=== PATIENT | female | born 1975 | race Caucasian/White ===

== ENCOUNTER 2017-04-21 15:45 | Emergency (ER) | payer OTHER ==
[~2017-04-21] VITALS: Ht 160 cm; Wt 90.7 kg
--- NOTE | ~2017-04-21 | EKG ---
[address] [address] ELECTROCARDIOGRAM REPORT Name: SIMBA DONOHUE Room #: [facility] Amrita#: [id number] Admission: 04/21/17 Attend Phys: Discharge: 04/21/17 Date of : 77 Report #: [id number] THIS REPORT FOR: //name// [facility] ED Test Date: 2017-04-21 Test Time: 16:41:23 Pat Name: SIMBA DONOHUE Department: Room: Gender: F Dentist: [id number] : 1975 Requested By: Wilfredo Mejia Order Number: [id number] MD: Naun Montaño Measurements Intervals [place] Rate: 92 P: 28 AK: 138 QRS: 26 QRSD: 82 T: 31 QT: 343 QTc: 425 Interpretive Statements Sinus rhythm No previous ECG available for comparison Electronically Signed On 04-22-2017 7:17:17 CDT by Naun Montaño [email or web address] <ELECTRONICALLY SIGNED> By: Naun Montaño MD 04/22/17 0717 164 1641 Naun Montaño MD /ANNEMARIE
[~2017-04-21 15:45] MED LIST: AMBIEN 10 MG TA10 MG PO; CLEOCIN HCL300 MG PO; CLONAZEPAM 1 MG1 M1 PO; MACROBID 100 M100 M1 PO; NAPROSYN500 MG PO; NORCO 5-325 TA1 EACH PO; ONDANSETRON HCL4 M2 PO; PRENATAL COMPL1 EACH PO; PROZAC40 MG PO; ZOFRAN ODT4 MG PO
[2017-04-21 17:08] LABS: URINE BILIRUBIN NEGATIVE (Negative); URINE BLOOD TRACE (Negative); URINE COLOR YELLOW; URINE GLUCOSE-RANDOM* NEGATIVE (Negative); URINE KETONES NEGATIVE (Negative); URINE NITRITE NEGATIVE (Negative); URINE PROTEIN (DIPSTICK) NEGATIVE (Negative); URINE UROBILINOGEN 0.2 E.U./dl (0.2-1.0)
[2017-04-21 17:21] LABS: EOSINOPHILS 1.4 % (0.0-3.0); HEMATOCRIT 40.2 % (37.0-47.0); HEMOGLOBIN 13.5 gm/dL (12.0-15.0); LYMPHOCYTES 25.9 % (24.0-44.0); MCH 30.6 pg (26.0-34.0); MCHC 33.5 g/dL (28.0-37.0); MCV 91.3 fL (80.0-100.0); MONOCYTES 7.2 % (1.0-8.0); PLATELET COUNT 322 thou/uL (150-400); POLYS 64.5 % (36.0-66.0); RBC 4.41 mil/uL (4.20-5.00); RDW 12.6 % (10.5-14.5); WBC 10.9 thou/uL (4.0-11.0)
[2017-04-21 17:22] LABS: MANUAL DIFF NO
[2017-04-21 17:23] LABS: BACTERIA >30 Many /HPF (None Seen); CASTS None Seen /LPF (None Seen); CRYSTALS None Seen /LPF (None Seen); SQUAMOUS 4-10 Moderate /LPF (0-3)
[2017-04-21 17:24] LABS: URINE RBC 0-2 Rare /HPF (0-2); URINE WBC 0-5 Rare /HPF (0-5)
[2017-04-21 17:27] LABS: ANION GAP 9 mmol/L (7-16); BUN 13 mg/dL (7-18); CALCIUM 8.2 mg/dL (8.5-10.1); CHLORIDE 105 mmol/L (98-107); CO2 25 mmol/L (21-32); CREATININE 0.7 mg/dL (0.6-1.0); GLUCOSE 110 mg/dL (74-106); POTASSIUM 3.8 mmol/L (3.5-5.1); SODIUM 139 mmol/L (136-145)
[2017-04-21 17:35] LABS: ALBUMIN 3.1 g/dL (3.4-5.0); ALKALINE PHOSPHATASE 115 U/L (46-116); SGOT 14 U/L (15-37); SGPT 12 U/L (30-65); TOTAL BILIRUBIN 0.1 mg/dL (<0.1-1.0); TROPONIN-I < 0.04 ng/mL (<0.06)
[2017-04-21] MEDS ORDERED: HYDROCODONE-AP1 EAC6 PO (17:42)
[2017-04-21] MEDS ORDERED: PREDNISONE 20 M20 MG PO (17:59)
[2017-04-21] MEDS ORDERED: PEPCID20 MG PO (17:59)
[2017-04-21 18:01] VITALS: BP 125/78
[2017-04-21] MEDS ORDERED: KEFLEX500 M1 PO (18:03)
== END 2017-04-21 18:03 | disposition home or self-care (01) ==
LOC: ER 15:45
PROVIDERS: Physician Assistant
DX: T42.6X5A Adverse effect of other antiepileptic and sedative-hypnotic drugs, initial encounter (principal); F32.9 Major depressive disorder, single episode, unspecified; N80.9 Endometriosis, unspecified; Z88.2 Allergy status to sulfonamides